=== PATIENT | female | born 1975 | race Two or more races ===

== ENCOUNTER 2016-12-03 19:08 | Emergency (ER) | payer MEDICAID ==
[2016-12-03] MEDS ORDERED: KETOROLAC TROMETHAMINE 60 MG/2 ML VIAL ONE (20:16)
[2016-12-03] MEDS ORDERED: ONDANSETRON 4 MG ODT TAB ONE (20:16)
[2016-12-03] MEDS ORDERED: METOCLOPRAMIDE HCL 5 MG/ML 2ML VIAL ONE (20:17)
== END 2016-12-03 19:12 | disposition home or self-care (01) ==
LOC: ED 19:08
DX: R51 Headache (principal); E66.9 Obesity, unspecified; Z79.899 Other long term (current) drug therapy; Z88.0 Allergy status to penicillin